=== PATIENT | male | born 1935 | race Two or more races ===

== ENCOUNTER → 2024-03-13 | Outpatient (CLI) | payer OTHER ==
[~2024-03-13] VITALS: Ht 188 cm; Wt 86.2 kg
[~2024-03-13] MED LIST: PERCOT PO
== END | disposition home or self-care (01) ==
LOC: LAB 14:12 → EDSTATUS 03-17 08:15
PROVIDERS: ATTEND Orthopaedic Surgery Adult Reconstructive Orthopaedic Surgery
DX: Z01.818 Encounter for other preprocedural examination (principal); S42.291A Other displaced fracture of upper end of right humerus, initial encounter for closed fracture; Z88.0 Allergy status to penicillin; Z87.891 Personal history of nicotine dependence; Z98.890 Other specified postprocedural states; X58.XXXA Exposure to other specified factors, initial encounter; Y93.89 Activity, other specified; Y92.89 Other specified places as the place of occurrence of the external cause; Y99.8 Other external cause status
CPT/HCPCS: 86850; 86900; 86901